=== PATIENT | female | born 1970 | race African-American/Black ===

== ENCOUNTER 2016-09-11 07:10 | Day surgery (SDC) | payer MEDICAID ==
[~2016-09-11 07:10] MED LIST: ALBUTEROL SULF8.5 G1 IH; AMBIEN10 MG PO; BACTRIM DS TAB1 EACH PO; BACTRIM DS TABL1 TAB PO; CATAPRES0.2 M1 PO; CLARITIN10 MG PO; COLACE100 MG PO; CYCLOBENZAPRINE10 M1 PO; DERMOLATE ANTI-I2 GM TP; HYDROCORTISON28.4 G2 TP; IBUPROFEN200 M2 PO; IBUPROFEN200 M3 PO; IBUPROFEN800 M1 PO; LISINOPRIL-HCT1 EAC1 PO; LISINOPRIL-HCT1 EAC3 PO; MACRODANTIN100 MG PO; MOTRIN800 MG PO; NORCO 10-325 T1 EACH PO; NORVASC5 M2 PO; OXYCODONE/APAP PO; PRENATAL1 EACH PO; PYRIDIUM200 MG PO; TRANDATE100 MG PO; TYLENOL325 MG PO; TYLENOL650 MG PO; ULTRAM50 MG PO; VENTOLIN HFA18 G2 PO; VICODIN 5/500 T1 TAB PO; ZOLOFT25 MG PO; [UNRECOGNIZED DRUG - OTHER] PO
== END 2016-09-11 13:13 ==
LOC: SHSB 07:10 → ORE 10:22 → SHSB 11:57
PROC: 01N50ZZ Release Median Nerve, Open Approach (ICD-10-PCS; principal; 2016-09-11)
PROC: 01N40ZZ Release Ulnar Nerve, Open Approach (ICD-10-PCS; 2016-09-11)
DX: G56.01 Carpal tunnel syndrome, right upper limb (principal); G56.22 Lesion of ulnar nerve, left upper limb; I10 Essential (primary) hypertension; G89.29 Other chronic pain; F32.9 Major depressive disorder, single episode, unspecified; Z90.710 Acquired absence of both cervix and uterus; Z79.899 Other long term (current) drug therapy; Z98.890 Other specified postprocedural states
CPT/HCPCS: J0690; J2250; J3010